=== PATIENT | female | born 1995 | race Caucasian/White ===

== ENCOUNTER 2017-01-29 14:19 | Emergency (ER) | payer SELFPAY ==
[~2017-01-29] VITALS: Ht 160 cm; Wt 71.0 kg
[~2017-01-29 14:19] MED LIST: AMOXICILLIN500 MG PO; AMOXICILLIN875 MG OR; AUGMENTIN875TAB PO; FLORASTOR250 M1 PO; IBUPROFEN400 MG PO; IMPLANON68 MG SC; PREDNISONE20 MG PO; PRENATA3 PO; SPRINTEC 2828 DAY PO; ZOFRAN4 M1 PO
[2017-01-29] MEDS ORDERED: AMOXICILLIN500 MG PO (17:01)
[2017-01-29 17:05] VITALS: BP 133/85
== END 2017-01-29 17:08 | disposition home or self-care (01) | DRG 153 ==
LOC: ED 14:19
DX: J02.9 Acute pharyngitis, unspecified (principal)

== ENCOUNTER 2017-08-06 06:35 | Emergency (ER) | payer SELFPAY ==
[~2017-08-06] VITALS: Ht 160 cm; Wt 71.0 kg
[2017-08-06] MEDS ORDERED: TESSALON PERLE100 MG PO (06:54)
[2017-08-06] MEDS ORDERED: AMOXICILLIN500 MG PO (06:54)
[2017-08-06 07:08] VITALS: BP 120/76
== END 2017-08-06 07:08 | disposition home or self-care (01) | DRG 153 ==
LOC: ED 06:35
DX: J01.00 Acute maxillary sinusitis, unspecified (principal)

== ENCOUNTER 2017-12-21 09:56 | Emergency (ER) | payer OTHER ==
[~2017-12-21] VITALS: Ht 160 cm; Wt 74.5 kg
[~2017-12-21 09:56] MED LIST changes: +TESSALON PERLE100 MG PO
[2017-12-21 10:52] LABS: URINE BILIRUBIN - DIPSTICK NEGATIVE (NEGATIVE); URINE BLOOD DIPSTICK NEGATIVE (NEGATIVE); URINE COLOR YELLOW; URINE GLUCOSE - DIPSTICK NEGATIVE (NEGATIVE); URINE KETONE NEGATIVE (NEGATIVE); URINE LEUK ESTERASE TRACE (NEGATIVE); URINE NITRITE - DIPSTICK NEGATIVE (Negative); URINE PH 7.5 (4.5-8.0); URINE PROTEIN - DIPSTICK NEGATIVE (NEG-TRACE); URINE UROBILINOGEN - DIPSTICK 0.2 E.U./dL (0.2)
[2017-12-21 10:56] LABS: URINE CLARITY CLEAR
[2017-12-21 10:56] LABS: HEMATOCRIT 31.9 % (37.0-47.0); IMMATURE GRANULOCYTES 0.8 % (0.0-5.0); MEAN CELL VOLUME 91.9 fL CALC (80.0-100.0); MEAN CORPUSCULAR HGB CONC 32.6 g/L CALC (32.0-36.0); NEUT# 12.09 thou/uL (2.00-7.15); RED BLOOD COUNT 3.47 mill/uL (4.20-5.60); RED CELL DISTRI WIDTH 13.1 % (11.5-15.5)
[2017-12-21 11:02] LABS: BARBITURATES NEGATIVE (NEGATIVE); COCAINE NEGATIVE (NEGATIVE); METHADONE NEGATIVE (NEGATIVE); OXCYCODONE NEGATIVE (NEGATIVE); TETRAHYDROCANNABIONOL NEGATIVE (NEGATIVE); TRICYLIC ANTIDEPRESSANTS NEGATIVE (NEGATIVE)
[2017-12-21 11:03] LABS: HEMOGLOBIN 10.4 g/dl (12.0-16.0)
[2017-12-21 11:11] LABS: ALBUMIN 3.4 g/dL (3.2-5.0); ALKALINE PHOSPHATASE 83 u/l (38-126); ANION GAP 14 (6-22 (CALC)); BILIRUBIN, TOTAL 0.3 mg/dL (0.0-1.4); BUN 7 mg/dL (7-17); BUN/CREATININE RATIO 16 (12-20 (CALC)); CARBON DIOXIDE 23 mmol/l (22-30); CHLORIDE 106 mmol/l (95-108); CREATININE 0.5 mg/dL (0.5-1.0); GFR > 60 ML/MIN (>=60 (CALC)); GFR FOR AFR.AMER. > 60 ML/MIN (>=60 (CALC)); POTASSIUM 4.2 mmol/l (3.5-5.1); SGOT/AST 19 u/l (14-36); SGPT/ALT 25 u/l (9-52); SODIUM 138 mmol/l (137-146); TOTAL PROTEIN 6.2 g/dL (6.3-8.2)
[2017-12-21 11:23] LABS: MYOGLOBIN 30 ng/mL (0 - 62)
[2017-12-21 11:57] VITALS: BP 110/68
== END 2017-12-21 11:57 | disposition home or self-care (01) | DRG 781 ==
LOC: ED 09:56
PROVIDERS: Emergency Medicine
DX: O16.3 Unspecified maternal hypertension, third trimester (principal); R07.89 Other chest pain; Z3A.32 32 weeks gestation of pregnancy

== ENCOUNTER 2018-03-22 02:54 | Emergency (ER) | payer OTHER ==
[~2018-03-22] VITALS: Ht 152.4 cm; Wt 72.7 kg
[2018-03-22 05:00] VITALS: BP 123/77
== END 2018-03-22 05:13 | disposition home or self-care (01) | DRG 313 ==
LOC: ED 02:54
DX: R07.89 Other chest pain (principal)

== ENCOUNTER 2018-05-23 08:16 | Emergency (ER) | payer OTHER, MEDICAID ==
[~2018-05-23] VITALS: Ht 157.5 cm; Wt 75.4 kg
[2018-05-23] MEDS ORDERED: AMOXICILLIN500 MG PO (09:30)
[2018-05-23 09:44] VITALS: BP 128/81
== END 2018-05-23 09:47 | disposition home or self-care (01) | DRG 153 ==
LOC: ED 08:16
DX: J02.9 Acute pharyngitis, unspecified (principal)

== ENCOUNTER 2018-09-19 13:24 | Emergency (ER) | payer OTHER ==
[~2018-09-19] VITALS: Ht 157.5 cm; Wt 75.6 kg
[2018-09-19] MEDS ORDERED: FLONASE AL50 MCG/ACT (13:41)
[2018-09-19] MEDS ORDERED: SUDAFED CONGEST30 MG PO (13:41)
[2018-09-19] MEDS ORDERED: ALLERGY TABLETS4 MG PO (13:41)
[2018-09-19 13:52] VITALS: BP 143/78
== END 2018-09-19 13:53 | disposition home or self-care (01) | DRG 153 ==
LOC: ED 13:24
DX: J30.9 Allergic rhinitis, unspecified (principal)

== ENCOUNTER 2018-12-24 09:18 | Emergency (ER) | payer OTHER ==
[~2018-12-24] VITALS: Ht 157.5 cm; Wt 63.6 kg
[~2018-12-24 09:18] MED LIST changes: +ALLERGY TABLETS4 MG PO; +FLONASE AL50 MCG/ACT; +SUDAFED CONGEST30 MG PO
[2018-12-24 09:52] LABS: IMMATURE GRANULOCYTES 0.3 % (0.0-5.0); MEAN CORPUSCULAR HGB 29.8 pG CALC (26.0-32.0); MEAN CORPUSCULAR HGB CONC 34.6 g/L CALC (32.0-36.0); NEUT# 4.86 thou/uL (2.00-7.15); RED BLOOD COUNT 4.63 mill/uL (4.20-5.60); RED CELL DISTRI WIDTH 13.4 % (11.5-15.5)
[2018-12-24 09:59] LABS: HEMATOCRIT 39.9 % (37.0-47.0); HEMOGLOBIN 13.8 g/dl (12.0-16.0)
[2018-12-24 10:00] LABS: MEAN CELL VOLUME 86.2 fL CALC (80.0-100.0)
[2018-12-24 10:39] LABS: ANION GAP 15 (6-22 (CALC)); BUN 9 mg/dL (7-17); BUN/CREATININE RATIO 14 (12-20 (CALC)); CARBON DIOXIDE 22 mmol/l (22-30); CHLORIDE 106 mmol/l (95-108); CREATININE 0.6 mg/dL (0.5-1.0); GFR > 60 ML/MIN (>=60 (CALC)); GFR FOR AFR.AMER. > 60 ML/MIN (>=60 (CALC)); POTASSIUM 4.2 mmol/l (3.5-5.1); SODIUM 138 mmol/l (137-146)
[2018-12-24 11:21] LABS: ETHYL ALCOHOL 0 mg/dl (0-30)
[2018-12-24 11:33] LABS: BARBITURATES NEGATIVE (NEGATIVE); COCAINE NEGATIVE (NEGATIVE); METHADONE NEGATIVE (NEGATIVE); OXCYCODONE NEGATIVE (NEGATIVE); TETRAHYDROCANNABIONOL NEGATIVE (NEGATIVE); TRICYLIC ANTIDEPRESSANTS NEGATIVE (NEGATIVE)
[2018-12-24 12:53] VITALS: BP 130/72
== END 2018-12-24 12:53 | disposition designated cancer center or children's hospital (05) | DRG 880 ==
LOC: ED 09:18
PROVIDERS: Family Medicine
DX: R45.851 Suicidal ideations (principal); R51 Headache

== ENCOUNTER 2019-05-26 08:50 | Emergency (ER) | payer OTHER ==
[2019-05-26] MEDS ORDERED: AMOXICILLIN500 M2 PO (09:28)
[2019-05-26 09:41] VITALS: BP 130/80
== END 2019-05-26 09:42 | disposition home or self-care (01) | DRG 153 ==
LOC: ED 08:50
DX: J02.9 Acute pharyngitis, unspecified (principal)

== ENCOUNTER 2022-10-05 17:37 | Emergency (ER) | payer SELFPAY ==
[2022-10-05] VITALS (9 sets, daily range): BP systolic 123–140; BP diastolic 75–88
[~2022-10-05] VITALS: Ht 157.5 cm; Wt 65.0 kg
[~2022-10-05 17:37] MED LIST changes: +AMOXICILLIN500 M2 PO
[2022-10-05] MEDS ORDERED: PENICILLN VK500 MG PO (19:34)
== END 2022-10-05 19:42 | disposition home or self-care (01) | DRG 153 ==
LOC: ED 17:37
DX: J02.9 Acute pharyngitis, unspecified (principal); Z20.822 Contact with and (suspected) exposure to COVID-19